=== PATIENT | male | born 2000 | race African-American/Black ===

== ENCOUNTER 2024-07-04 17:32 | Emergency (ER) | payer OTHER ==
[~2024-07-04] VITALS: Ht 190.5 cm; Wt 164.2 kg
[2024-07-04 19:00] LABS: STREPTOCOCCUS GRP A ANTIGEN NEGATIVE (NEGATIVE)
[2024-07-04] MEDS ORDERED: ONDANSETRON ODT4 MG PO (19:00)
[2024-07-04 19:01] LABS: CORONAVIRUS COVID-19 AG NEGATIVE (NEGATIVE); INFLUENZA B AG NEGATIVE (NEGATIVE)
[2024-07-04 19:03] LABS: INFLUENZA A AG POSITIVE (NEGATIVE)
[2024-07-04 19:21] VITALS: PULSE 104; RESP 20; TEMP 99.3; O2SAT 98
== END 2024-07-04 19:20 | disposition home or self-care (01) ==
LOC: ER 19:00
DX: R50.9 Fever, unspecified (principal); J10.1 Influenza due to other identified influenza virus with other respiratory manifestations; R05.9 Cough, unspecified; R11.0 Nausea; Z11.52 Encounter for screening for COVID-19
CPT/HCPCS: 71045; 83518; 87070; 99283

== ENCOUNTER 2024-10-09 18:30 | Emergency (ER) | payer OTHER ==
[~2024-10-09] VITALS: Ht 190.5 cm; Wt 164.2 kg
[~2024-10-09 18:30] MED LIST: ONDANSETRON ODT4 MG PO
[2024-10-09 19:13] LABS: CORONAVIRUS COVID-19 AG NEGATIVE (NEGATIVE); INFLUENZA A AG NEGATIVE (NEGATIVE); INFLUENZA B AG NEGATIVE (NEGATIVE)
[2024-10-09] MEDS: ONDANSETRON HCL 4 MG ORAL DISINTEGRATING TAB PO ONE (19:54)
[2024-10-09] MEDS ORDERED: MEDROL4 M2 PO (20:38)
[2024-10-09] MEDS ORDERED: BENZONATATE200 MG PO (20:38)
[2024-10-09] MEDS ORDERED: ONDANSETRON ODT4 MG SL (20:38)
[2024-10-09] MEDS ORDERED: VENTOLIN HFA18 GM INH (20:38)
[2024-10-09] MEDS ORDERED: AZITHROMYCIN250 MG PO (20:38)
[2024-10-09 20:44] VITALS: PULSE 89; RESP 19; TEMP 98.6
[2024-10-09 20:54] VITALS: BP 120/70; PULSE 89; RESP 19; TEMP 98.6; O2SAT 97
== END 2024-10-09 20:58 | disposition home or self-care (01) ==
LOC: ER 18:36
DX: R05.9 Cough, unspecified (principal); J20.9 Acute bronchitis, unspecified; R09.89 Other specified symptoms and signs involving the circulatory and respiratory systems; F17.210 Nicotine dependence, cigarettes, uncomplicated; Z11.52 Encounter for screening for COVID-19
CPT/HCPCS: 71045; 87428; 99283; Q0162